=== PATIENT | female | born 1960 | race Caucasian/White ===

== ENCOUNTER 2021-05-26 15:37 | Inpatient (IN) | payer OTHER ==
[~2021-05-26] VITALS: Ht 154.9 cm; Wt 71.2 kg
[2021-05-26] MEDS ORDERED: ONDANSETRON HCL 4MG/2ML INJ IV STA (16:41)
[2021-05-26] MEDS ORDERED: MORPHINE SULFATE 4 MG/ML CPJ (NOT FOR IM USE) IV STA (16:41)
[2021-05-26 18:01] LABS: CLARITY URINE CLEAR (CLEAR); COLOR URINE YELLOW (YELLOW); KETONES URINE 4+ (NEGATIVE); LEUKOCYTE ESTERASE URINE NEGATIVE (NEGATIVE); NITRITE URINE NEGATIVE (NEGATIVE); OCCULT BLOOD URINE NEGATIVE (NEGATIVE); PH URINE 5.5 (4.5-8.0); PROTEIN URINE 1+ (NEGATIVE); SPECIFIC GRAVITY URINE 1.032 (1.005-1.030); UROBILINOGEN URINE 0.2 E.U./dL (0.2-1.0)
[2021-05-26 18:48] LABS: CHLORIDE 88 mEq/L (98-107)
[2021-05-26 18:49] LABS: HEMATOCRIT. 39.1 % (36.0-48.0); HEMOGLOBIN. 13.2 g/dL (12.0-16.0); MEAN CORPUSCULAR HEMOGLOBIN 32.3 pg (28.0-32.0); MEAN CORPUSCULAR VOLUME 95.2 fL (81.0-99.0); MEAN PLATELET VOLUME 8.9 fl (7.4-10.4); PLATELET 268 x1000/uL (130-400); RED CELL DISTRIBUTION WIDTH 12.4 % (11.6-14.6)
[2021-05-26] MEDS ORDERED: INSULIN REGULAR (HUMULIN R) 300UNITS/3ML VIAL IV ONE (19:15)
[2021-05-26] MEDS ORDERED: SODIUM CHLORIDE 0.9% 1,000 ML IV ONE ×2 (19:15→22:00)
[2021-05-26] MEDS ORDERED: MORPHINE SULFATE 4 MG/ML CPJ (NOT FOR IM USE) IV ONE ×2 (20:00→22:00)
[2021-05-26] MEDS ORDERED: HYDRALAZINE 20MG/ML VIAL IV ONE (20:00)
[2021-05-26 20:10] LABS: BG BASE EXCESS -19.3 mmol/L (-2.0-2.0); BG CARBOXYHEMOGLOBIN 0.3 % (0.5-1.5); BG DEOXYHEMOGLOBIN 2.3 % (0.0-5.0); BG FRACTION INSPIRED OXYGEN 21; BG HCO3 ACT 6.8 mmol/L (22.0-26.0); BG METHEMOGLOBIN 0.5 % (0.0-1.5); BG OXYGEN SATURATION 97.7 % (92.0-98.5); BG OXYHEMOGLOBIN 96.9 % (94.0-97.0); BG PCO2 18.4 mmHg (35.0-45.0); BG PH 7.184 (7.350-7.450); BG PO2 128.6 mmHg (75.0-100.0); BG SAMPLE SITE RIGHT BRACHIAL; BG TOTAL HEMOGLOBIN 13.8 g/dL (12.0-18.0); BG VENT MODE ROOM AIR
[2021-05-26] MEDS ORDERED: INSULIN REGULAR (DRIP) 100 UNITS in SODIUM CHLORIDE 0.9% 99 ML IV SCH (20:30)
[2021-05-26 22:37] LABS: PLATELET ESTIMATE NORMAL
[2021-05-26 23:24] LABS: HEMATOCRIT. 39.7 % (36.0-48.0); HEMOGLOBIN. 13.8 g/dL (12.0-16.0); MEAN CORPUSCULAR HEMOGLOBIN 32.4 pg (28.0-32.0); MEAN CORPUSCULAR VOLUME 93.5 fL (81.0-99.0); MEAN PLATELET VOLUME 8.6 fl (7.4-10.4); PLATELET 242 x1000/uL (130-400); RED BLOOD CELL COUNT 4.25 mill/uL (4.2-5.4); RED CELL DISTRIBUTION WIDTH 12.3 % (11.6-14.6)
[2021-05-26 23:29] LABS: CHLORIDE 98 mEq/L (98-107)
[2021-05-26 23:35] LABS: PHOSPHORUS 3.5 mg/dL (2.5-4.9)
[2021-05-27] VITALS (10 sets, daily range): BP systolic 134–188; BP diastolic 78–112
[2021-05-27] MEDS ORDERED: POTASSIUM CHLORIDE 20MEQ TABLET SR PO NR (01:00)
[2021-05-27] MEDS: MORPHINE SULFATE 2 MG/ML CPJ (NOT FOR IM USE) IV PRN ×6 (01:00→21:30)
[2021-05-27] MEDS ORDERED: NALOXONE HCL 0.4MG/ML VIAL IV PRN (01:00)
[2021-05-27 03:31] LABS: PLATELET ESTIMATE NORMAL
[2021-05-27 05:40] LABS: CHLORIDE 108 mEq/L (98-107)
[2021-05-27] MEDS ORDERED: DEXT IV SCH (06:30)
[2021-05-27] MEDS ORDERED: NACL IV SCH (06:30)
[2021-05-27] MEDS ORDERED: POTASSIUM CHLORIDE IV SCH (06:30)
[2021-05-27] MEDS ORDERED: POTASSIUM CHLORIDE 20MEQ TABLET SR PO SCH (06:30)
[2021-05-27] MEDS ORDERED: ONDANSETRON HCL 4MG/2ML INJ IV PRN (09:00)
[2021-05-27] MEDS ORDERED: DEXTROSE 50% WATER 50ML SYRINGE IV PRN (09:00)
[2021-05-27] MEDS: BLOOD SUGAR DIAGNOSTIC STRIP TEST SCH ×4 (09:30→21:55)
[2021-05-27] MEDS ORDERED: LIDOCAINE HCL 1% 10 MG/ML 10ML VIAL ONE (11:25)
[2021-05-27] MEDS: AMLODIPINE 10MG TABLET PO SCH (11:52)
[2021-05-27] MEDS: PANTOPRAZOLE SODIUM 40 MG/VIAL IV SCH (11:58)
[2021-05-27] MEDS: DEXT 5%/0.45% NACL 1000ML 1,000 ML IV SCH ×2 (12:38→21:50)
[2021-05-27] MEDS: INSULIN LISPRO 100 UNITS/ML SUBCUT SCH ×3 (12:41→21:55)
[2021-05-27] MEDS ORDERED: PNEUMOCOCCAL 23-VAL P-SAC VAC 0.5 ML IM ONE (13:30)
[2021-05-27] MEDS ORDERED: [UNRECOGNIZED DRUG - CODE] PO (13:43)
[2021-05-27] MEDS ORDERED: LORA10TA7 MT (13:43)
[2021-05-27] MEDS ORDERED: FLUO40CA49 MT (13:43)
[2021-05-27] MEDS ORDERED: LEVO75TA7 MT (13:43)
[2021-05-27] MEDS ORDERED: LIPA1CAP8 MT (13:43)
[2021-05-27] MEDS ORDERED: BENA20TA10 MT (13:43)
[2021-05-27] MEDS ORDERED: ATOR40TA70 MT (13:43)
[2021-05-27] MEDS ORDERED: MELA5TAB19 MT (13:43)
[2021-05-27] MEDS ORDERED: RIFA550T MT (13:43)
[2021-05-27] MEDS ORDERED: METF-416 MT (13:43)
[2021-05-27] MEDS ORDERED: *PATIENT'S OWN MEDICATION STORAGE XX SCH (15:00)
[2021-05-27] MEDS ORDERED: INSULIN GLARGINE UD 100 UNITS/ML SYR SUBCUT SCH (22:00)
[2021-05-28] VITALS: BP 123/75
[2021-05-28] MEDS: DEXT 5%/0.45% NACL 1000ML 1,000 ML IV SCH (03:30)
[2021-05-28 04:00] VITALS: BP 133/78
[2021-05-28] MEDS: MORPHINE SULFATE 2 MG/ML CPJ (NOT FOR IM USE) IV PRN ×2 (04:37→08:45)
[2021-05-28 06:37] LABS: BASOPHILS % 0.5 % (0.0-2.0); EOSINOPHILS % 0.6 % (0.0-5.0); HEMATOCRIT. 33.8 % (36.0-48.0); LYMPHOCYTES % 13.1 % (20.0-50.0); MEAN PLATELET VOLUME 8.7 fl (7.4-10.4); MONOCYTES % 10.2 % (2.0-8.0); NEUTROPHILS % 75.6 % (40.0-76.0); PLATELET 164 x1000/uL (130-400); RED BLOOD CELL COUNT 3.64 mill/uL (4.2-5.4); RED CELL DISTRIBUTION WIDTH 12.3 % (11.6-14.6)
[2021-05-28 06:52] LABS: CHLORIDE 110 mEq/L (98-107)
[2021-05-28] MEDS: BLOOD SUGAR DIAGNOSTIC STRIP TEST SCH ×4 (07:20→21:00)
[2021-05-28] MEDS: INSULIN LISPRO 100 UNITS/ML SUBCUT SCH ×4 (07:24→21:00)
[2021-05-28 08:00] VITALS: BP 135/78
[2021-05-28 08:33] LABS: AMYLASE 151 IU/L (25-115)
[2021-05-28] MEDS: PANTOPRAZOLE SODIUM 40 MG/VIAL IV SCH (08:44)
[2021-05-28] MEDS: SODIUM CHLORIDE 0.45% 1,000 ML IV SCH ×2 (08:56→22:30)
[2021-05-28] MEDS: AMLODIPINE 10MG TABLET PO SCH (08:57)
[2021-05-28] MEDS: INSULIN GLARGINE UD 100 UNITS/ML SYR SUBCUT SCH ×2 (10:47→22:00)
[2021-05-28 12:00] VITALS: BP 117/83
[2021-05-28] MEDS: HYDROCODONE/ACETAMINOPHEN 5/325MG TABLET PO PRN ×3 (12:22→22:41)
[2021-05-28 12:49] LABS: CHLORIDE 109 mEq/L (98-107)
[2021-05-28 12:51] LABS: BASOPHILS % 0.6 % (0.0-2.0); EOSINOPHILS % 0.7 % (0.0-5.0); HEMATOCRIT. 34.3 % (36.0-48.0); HEMOGLOBIN. 12.1 g/dL (12.0-16.0); LYMPHOCYTES % 18.1 % (20.0-50.0); MEAN CORPUSCULAR HEMOGLOBIN 32.9 pg (28.0-32.0); MEAN PLATELET VOLUME 8.2 fl (7.4-10.4); MONOCYTES % 9.2 % (2.0-8.0); NEUTROPHILS % 71.4 % (40.0-76.0); PLATELET 167 x1000/uL (130-400); RED BLOOD CELL COUNT 3.69 mill/uL (4.2-5.4); RED CELL DISTRIBUTION WIDTH 12.3 % (11.6-14.6)
[2021-05-28 13:08] LABS: PHOSPHORUS 0.9 mg/dL (2.5-4.9)
[2021-05-28] MEDS ORDERED: MAGNESIUM 4 G PREMIX 100 ML IV NR (15:30)
[2021-05-28 16:00] VITALS: BP 119/76
[2021-05-28] MEDS ORDERED: POTASSIUM PHOS,M-BASIC-D-BASIC 30 MMOL in DEXT 5% WATER 500 ML IV NR (16:00)
[2021-05-28] MEDS ORDERED: POTASSIUM CHLORIDE 20MEQ TABLET SR PO NR (17:00)
[2021-05-28 20:00] VITALS: BP 104/55
[2021-05-28 20:51] LABS: CHLORIDE 106 mEq/L (98-107)
[2021-05-28 20:57] LABS: PHOSPHORUS 2.6 mg/dL (2.5-4.9)
[2021-05-28] MEDS: PROPRANOLOL HCL 10MG TABLET PO SCH (21:00)
[2021-05-29] VITALS: BP 120/70
[2021-05-29] MEDS: HYDROCODONE/ACETAMINOPHEN 5/325MG TABLET PO PRN ×2 (03:26→11:37)
[2021-05-29 04:00] VITALS: BP 110/67
[2021-05-29] MEDS: MORPHINE SULFATE 2 MG/ML CPJ (NOT FOR IM USE) IV PRN ×2 (05:41→09:48)
[2021-05-29] MEDS: BLOOD SUGAR DIAGNOSTIC STRIP TEST SCH (06:41)
[2021-05-29] MEDS: INSULIN LISPRO 100 UNITS/ML SUBCUT SCH ×2 (06:41→12:40)
[2021-05-29] MEDS: SODIUM CHLORIDE 0.45% 1,000 ML IV SCH (06:43)
[2021-05-29 08:00] VITALS: BP 102/61
[2021-05-29] MEDS ORDERED: FAMOTIDINE 20MG/2ML VIAL IV SCH (09:00)
[2021-05-29] MEDS: PROPRANOLOL HCL 10MG TABLET PO SCH (09:00)
[2021-05-29] MEDS: AMLODIPINE 10MG TABLET PO SCH (09:00)
[2021-05-29] MEDS: INSULIN GLARGINE UD 100 UNITS/ML SYR SUBCUT SCH (11:35)
[2021-05-29 12:00] VITALS: BP 116/75
[2021-05-29 12:39] LABS: CHLORIDE 109 mEq/L (98-107)
[2021-05-29 12:44] LABS: PHOSPHORUS 2.3 mg/dL (2.5-4.9)
[2021-05-29 12:56] VITALS: BP 116/75
[2021-05-29] MEDS ORDERED: POTASSIUM PHOS,M-BASIC-D-BASIC 10 MMOL in DEXT 5% WATER 246.6667 ML IV NR (15:00)
[2021-05-29] MEDS ORDERED: MAGNESIUM 1 G PREMIX 100 ML IV NR (15:00)
== END 2021-05-29 15:00 | disposition short-term general hospital (02) | DRG 282 ==
LOC: ER 15:37 → CVICU 20:31 → ENRESERV 05-27 07:37 → 6EST 05-27 16:00 → 8WST 05-28 16:40
PROVIDERS: ADMIT Internal Medicine; ATTEND Internal Medicine
PROC: 02HV33Z Insertion of Infusion Device into Superior Vena Cava, Percutaneous Approach (ICD-10-PCS; principal; 2021-05-27)
PROC: B548ZZA Ultrasonography of Superior Vena Cava, Guidance (ICD-10-PCS; 2021-05-27)
DX: K85.10 Biliary acute pancreatitis without necrosis or infection (principal); E11.10 Type 2 diabetes mellitus with ketoacidosis without coma; E87.8 Other disorders of electrolyte and fluid balance, not elsewhere classified; I10 Essential (primary) hypertension; K80.20 Calculus of gallbladder without cholecystitis without obstruction; E83.42 Hypomagnesemia; K86.1 Other chronic pancreatitis; E87.6 Hypokalemia; R94.31 Abnormal electrocardiogram [ECG] [EKG]; Z20.822 Contact with and (suspected) exposure to COVID-19; E78.5 Hyperlipidemia, unspecified; E03.9 Hypothyroidism, unspecified; E87.1 Hypo-osmolality and hyponatremia; Z87.891 Personal history of nicotine dependence; I25.2 Old myocardial infarction; Z88.2 Allergy status to sulfonamides
CPT/HCPCS: 36415; 36600; 71045; 74176; 76700; 76937; 80048; 80053; 81003; 82010; 82150; 82375; 82805; 82962; 83036; 83615; 83735; 83880; 84100; 84484; 85025; 87426; 90732; 93005; 93306; 99291; C1725; C1893; C9113; J0360; J1815; J2270; J2405; J3475; J3480; J3490; J7030; J7050; J7060